=== PATIENT | female | born 2000 | race Asian ===

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

== ENCOUNTER 2023-06-07 20:40 | Inpatient (IN) | payer BC, MEDICAID ==
[2023-06-07] MEDS ORDERED: Oxytocin/0.9 % Sodium Chloride 30 UNIT/500 ML BAG ONE (20:56)
[2023-06-07] MEDS ORDERED: Lidocaine 1% 20 ML MDV ONE (20:57)
[2023-06-07] MEDS ORDERED: Lidocaine 1% 50 ML MDV ONE (21:20)
[2023-06-07] MEDS ORDERED: Tranexamic Acid IN NACL,ISO-OS 1,000 MG in Premix Bag 1 BAG IV PRN ×2 (21:21)
[2023-06-07] MEDS ORDERED: Misoprostol 200 MCG Tab PO PRN (21:21)
[2023-06-07] MEDS ORDERED: Sodium Chloride 0.9% 2.5 ML Syringe FLUSH PRN (21:21)
[2023-06-07] MEDS ORDERED: Carboprost Tromethamine 250 MCG/1 mL Vial IM PRN (21:21)
[2023-06-07] MEDS ORDERED: Sodium Chloride 0.9% 10 ML Syringe FLUSH PRN (21:21)
[2023-06-07] MEDS ORDERED: Methylergonovine 0.2 MG/1 ML Amp IM PRN (21:21)
[2023-06-07] MEDS ORDERED: Sodium Chloride 0.9% 20 ML SDV IV PRN (21:21)
[2023-06-07] MEDS ORDERED: Lidocaine 1% 50 ML MDV INJECT PRN (21:21)
[2023-06-07] MEDS ORDERED: Water For Irrigation,Sterile 1,000 ML Container IRR PRN (21:21)
[2023-06-07 21:30] LABS: HEMATOCRIT 35.2 % (37.0-47.0); HEMOGLOBIN 12.5 g/dL (12.0-16.0); MEAN CORPUSCULAR HEMOGLOBIN 31.6 pg (28.0-32.0); MEAN CORPUSCULAR HGB CONC 35.5 g/dL (32.0-36.0); MEAN CORPUSCULAR VOLUME 89.1 fL (83.0-99.0); MEAN PLATELET VOLUME 10.2 fL (9.4-12.3); PLATELET COUNT,PLT 146 K/uL (150-400); RED BLOOD CELL COUNT 3.95 M/uL (4.10-5.30); WHITE BLOOD CELL COUNT,WBC 9.99 K/uL (3.9-11.3)
[2023-06-07] MEDS ORDERED: Oxytocin/0.9 % Sodium Chloride 30 UNIT/500 ML BAG IV SCH (21:30)
[2023-06-07] MEDS ORDERED: Lactated Ringers 1,000 ML IV SCH (21:30)
[2023-06-07] MEDS ORDERED: Nalbuphine 10 MG/0.5 ML Syringe ONE (21:35)
[2023-06-07] MEDS ORDERED: Benzocaine/Menthol 20%-0.5% Spray 78 GM Cannister ONE (21:48)
[2023-06-07] MEDS ORDERED: Witch Hazel Medicated Pads 40/Jar TOP ONE (21:48)
[2023-06-07] MEDS ORDERED: Phenylephrine HCl 0.5 MG/5 ML AMP IVPUSH PRN (21:50)
[2023-06-07] MEDS ORDERED: ePHEDrine 50 MG/ML SDV IVPUSH PRN ×2 (21:50)
[2023-06-07] MEDS ORDERED: Ropivacaine HCl/PF 400 MG in Premix Bag 1 BAG EPIDUR SCH (22:00)
[2023-06-07] MEDS ORDERED: Ibuprofen 800 MG Tab PO PRN (22:07)
[2023-06-07] MEDS ORDERED: Famotidine 20 MG Tab PO PRN (22:07)
[2023-06-07] MEDS ORDERED: Ondansetron 4 MG/2 ML SDV IVPUSH PRN (22:07)
[2023-06-07] MEDS ORDERED: Witch Hazel Medicated Pads 40/Jar TOP PRN (22:07)
[2023-06-07] MEDS ORDERED: diphenhydrAMINE 50 MG Cap PO PRN (22:07)
[2023-06-07] MEDS ORDERED: Lanolin 100% Cream 7 GM Tube TOP PRN (22:07)
[2023-06-07] MEDS ORDERED: Benzocaine/Menthol 20%-0.5% Spray 78 GM Cannister TOP PRN (22:07)
[2023-06-07] MEDS ORDERED: Docusate Sodium 100 MG Cap PO PRN (22:07)
[2023-06-07] MEDS ORDERED: Simethicone 80 MG Tab.Chew PO PRN (22:07)
[2023-06-07] MEDS ORDERED: Acetaminophen 500 MG Tab PO PRN (22:07)
[2023-06-07] MEDS ORDERED: Bisacodyl 10 MG Supp RECTAL PRN (22:07)
[2023-06-07] MEDS ORDERED: Aluminum Hydroxide/Magnesium Hydroxide/Simethicone XS Susp 30 ML Cup PO PRN (22:07)
[2023-06-08 06:25] LABS: HEMATOCRIT 29.8 % (37.0-47.0); HEMOGLOBIN 10.5 g/dL (12.0-16.0); MEAN CORPUSCULAR HEMOGLOBIN 31.2 pg (28.0-32.0); MEAN CORPUSCULAR HGB CONC 35.2 g/dL (32.0-36.0); MEAN CORPUSCULAR VOLUME 88.4 fL (83.0-99.0); MEAN PLATELET VOLUME 10.3 fL (9.4-12.3); PLATELET COUNT,PLT 143 K/uL (150-400); RED BLOOD CELL COUNT 3.37 M/uL (4.10-5.30); WHITE BLOOD CELL COUNT,WBC 16.09 K/uL (3.9-11.3)
[2023-06-08] MEDS: Iron Polysaccharides Complex 150 MG Cap PO SCH (09:14)
[2023-06-09] MEDS: Iron Polysaccharides Complex 150 MG Cap PO SCH (08:34)
== END 2023-06-09 12:03 | disposition home or self-care (01) | DRG 560 ==
LOC: MW.OBCHECK 20:40 → MW.OB 20:41 → MW.OBCHECK 20:45 → MW.OB 20:45 → OBSVTOIN 21:21 → MW.OB 06-08 02:34
PROVIDERS: ADMIT Obstetrics & Gynecology; ATTEND Obstetrics & Gynecology
PROC: 10E0XZZ Delivery of Products of Conception, External Approach (ICD-10-PCS; principal; 2023-06-07)
PROC: 0KQM0ZZ Repair Perineum Muscle, Open Approach (ICD-10-PCS; 2023-06-07)
DX: O48.0 Post-term pregnancy (principal); O42.02 Full-term premature rupture of membranes, onset of labor within 24 hours of rupture; Z37.0 Single live birth; O70.1 Second degree perineal laceration during delivery; O99.02 Anemia complicating childbirth; D62 Acute posthemorrhagic anemia; Z3A.40 40 weeks gestation of pregnancy
CPT/HCPCS: 36415; 59025; 59409; 85027; 86592; 86850; 86900; 86901; A9270-GY; J2001; J2300; J2590; J2795; J3490

== ENCOUNTER 2024-05-18 19:57 | Emergency (ER) | payer BC, MEDICAID ==
[2024-05-18] MEDS ORDERED: Ondansetron 4 MG Tab.DIS PO ONE (20:02)
== END 2024-05-18 23:00 | disposition left against medical advice (07) ==
LOC: MW.ED 19:57
DX: Z53.21 Procedure and treatment not carried out due to patient leaving prior to being seen by health care provider (principal)